=== PATIENT | male | born 1940 | race Caucasian/White ===

== ENCOUNTER → 2016-12-02 | Outpatient (CLI) | payer OTHER | LOC: FIMAGING 08:31 → EDSTATUS 08:32 | PROVIDERS: ATTEND Family Medicine | DX: M19.042 Primary osteoarthritis, left hand (principal) ==

== ENCOUNTER → 2017-05-08 | Outpatient (CLI) | payer OTHER | LOC: EDSTATUS 11:44 → FIMAGING 13:54 | PROVIDERS: ATTEND Family Medicine | DX: J44.9 Chronic obstructive pulmonary disease, unspecified (principal); D72.829 Elevated white blood cell count, unspecified ==

== ENCOUNTER → 2017-05-20 | Outpatient (CLI) | payer OTHER ==
--- NOTE | 2017-05-20 13:37 | PDCARST ---
CAR Stress Test Results Type of Stress Test: Nuc TM stress test Indication: shortness of breath Description of Procedure: After informed consent was obtained, pt was established to ECG, blood pressure, HR and oximetry monitoring. STRESS EKG AND HEMODYNAMIC DATA. Resting heart rate: 61 BPM. Resting ECG: SR. Resting blood pressure: 108/74 mmHg. O2 saturation at rest: 94%. Peak heart rate: 149 BPM which is 102% MPHR. Peak blood pressure: 170/86 mmHg. Arrhythmias : Rest: none Stress: frequent PVCs, PVC couplet Recovery: occ PVC, PACs, blocked PACs. Symptoms: The patient experienced no typical symptoms of angina during stress or recovery. Stress/Infusion EC mm STD horizontal. Stress/ infusion O2 saturation: 94%. Impression: DTS: +5- 5(1)= 0 Conclusion: Await nuclear images.
== END ==
LOC: FIMAGING 11:49
PROVIDERS: ATTEND Internal Medicine Cardiovascular Disease
DX: R06.02 Shortness of breath (principal)
CPT/HCPCS: 78452; 93017; A9500

== ENCOUNTER → 2018-03-26 | Outpatient (CLI) | payer OTHER | LOC: FIMAGING 08:42 | PROVIDERS: ATTEND Family Medicine | DX: M51.36 Other intervertebral disc degeneration, lumbar region (principal); M48.56XA Collapsed vertebra, not elsewhere classified, lumbar region, initial encounter for fracture; M43.16 Spondylolisthesis, lumbar region ==

== ENCOUNTER → 2018-03-30 | Outpatient (CLI) | payer OTHER | LOC: BMCIMAGING 08:35 | PROVIDERS: ATTEND Family Medicine | DX: Z13.820 Encounter for screening for osteoporosis (principal); M85.89 Other specified disorders of bone density and structure, multiple sites; M53.85 Other specified dorsopathies, thoracolumbar region; Z78.0 Asymptomatic menopausal state ==

== ENCOUNTER → 2018-11-08 | Outpatient (CLI) | payer OTHER | LOC: FIMAGING 10:04 | PROVIDERS: ATTEND Family Medicine | DX: J98.4 Other disorders of lung (principal) ==

== ENCOUNTER → 2018-11-24 | Outpatient (CLI) | payer OTHER | LOC: FIMAGING 09:24 | PROVIDERS: ATTEND Family Medicine | DX: R91.8 Other nonspecific abnormal finding of lung field (principal); K44.9 Diaphragmatic hernia without obstruction or gangrene; K21.9 Gastro-esophageal reflux disease without esophagitis; G47.33 Obstructive sleep apnea (adult) (pediatric); N40.0 Benign prostatic hyperplasia without lower urinary tract symptoms ==

== ENCOUNTER → 2018-12-20 | Outpatient (CLI) | payer OTHER | PROVIDERS: ATTEND Family Medicine | DX: J45.909 Unspecified asthma, uncomplicated (principal); K44.9 Diaphragmatic hernia without obstruction or gangrene; K21.9 Gastro-esophageal reflux disease without esophagitis; T17.908A Unspecified foreign body in respiratory tract, part unspecified causing other injury, initial encounter | CPT/HCPCS: 92611-GN ==